=== PATIENT | female | born 1980 | race Caucasian/White ===

== ENCOUNTER 2025-06-23 00:19 | Emergency (ER) | payer OTHER ==
[~2025-06-23] VITALS: Ht 165.1 cm; Wt 54.4 kg
[2025-06-23 03:49] VITALS: BP 132/79; TEMP 98.6; O2SAT 100
== END 2025-06-23 03:49 | disposition home or self-care (01) ==
LOC: ER 00:27
DX: S61.213A Laceration without foreign body of left middle finger without damage to nail, initial encounter (principal); W27.0XXA Contact with workbench tool, initial encounter; Y93.89 Activity, other specified; Y92.89 Other specified places as the place of occurrence of the external cause; Y99.8 Other external cause status